=== PATIENT | female | born 1985 | race Caucasian/White ===

== ENCOUNTER 2016-12-31 19:25 | Emergency (ER) | payer OTHER ==
[2016-12-31 19:42] VITALS: RESP 18; TEMP 97.6
[2016-12-31 22:08] VITALS: BP 108/58; PULSE 74; O2SAT 99
== END 2016-12-31 21:24 | disposition home or self-care (01) | DRG 781 ==
LOC: ED 19:25
DX: O26.892 Other specified pregnancy related conditions, second trimester (principal); R10.31 Right lower quadrant pain; Z3A.19 19 weeks gestation of pregnancy; R10.30 Lower abdominal pain, unspecified
CPT/HCPCS: 99284

== ENCOUNTER 2017-05-20 07:12 | Observation (INO) | payer OTHER ==
[2016-12-31 22:08] VITALS: O2SAT 99
[~2017-05-20 07:12] MED LIST: CARBOPROST 250 MCG/ML SOL IM PRN; FENTANYL 100MCG/2ML SOL IV PRN; LACTATED RINGERS 1,000 ML IV PRN; MEPIVACAINE HCL 1% MPF 30 ML SOL INFIL PRN; METHYLERGONOVINE MALEATE 0.2 MG/ML SOL IM PRN; OXYTOCIN 10000 MU/ML SOL IM PRN; SODIUM CHLORIDE 0.9% 50 ML 25 ML IV PRN; SODIUM CHLORIDE 0.9% FLUSH 10 ML SOL IV PRN; TERBUTALINE SULFATE 1 MG/ML SOL SC PRN
[2017-05-20] MEDS ORDERED: LACTATED RINGERS 1,000 ML IV SCH (07:15)
[2017-05-20] MEDS ORDERED: OXYTOCIN 10000 MU/ML 20,000 MU in LACTATED RINGERS 1,000 ML IV SCH (07:15)
[2017-05-20] MEDS ORDERED: AMPICILLIN 1 GM PDS 2 GM in SODIUM CHLORIDE 0.9% 100 ML 100 ML IV SCH (07:15)
[2017-05-20] MEDS: SODIUM CHLORIDE 0.9% FLUSH 10 ML SOL IV SCH ×2 (07:41→14:59)
[2017-05-20] MEDS ORDERED: LACTATED RINGERS 1,000 ML ONE (08:01)
[2017-05-20] MEDS ORDERED: OXYTOCIN 10000 MU/ML SOL ONE (08:01)
[2017-05-20 08:25] VITALS: RESP 20
[2017-05-20 09:16] LABS: BASOPHILS % (AUTO) 1 % (0-3); EOSINOPHILS % (AUTO) 1 % (0-9); HEMATOCRIT 36 % (35-47); MEAN CORPUSCULAR HGB CONC 37.9 gm/dl (32.0-36.0); MEAN CORPUSCULAR VOLUME 91 fL (81-99); MONOCYTES % (AUTO) 6.5 % (0-12)
[2017-05-20 09:31] LABS: ANISOCYTOSIS SLIGHT
[2017-05-20] MEDS ORDERED: AMPICILLIN 1 GM PDS ONE ×2 (09:39→14:13)
[2017-05-20] MEDS: AMPICILLIN 1 GM PDS 1 GM in SODIUM CHLORIDE 0.9% 100 ML 100 ML IV SCH ×2 (14:22→18:55)
[2017-05-20 18:49] VITALS: BP 108/64; PULSE 77; TEMP 97.9
== END 2017-05-20 20:05 | disposition home or self-care (01) | DRG 951 ==
LOC: INTOOBSV 07:12 → OB 07:12 → OBSVTOIN 07:12 → UNDODISIN 20:05
PROVIDERS: ADMIT Family Medicine; ATTEND Family Medicine
DX: Z34.83 Encounter for supervision of other normal pregnancy, third trimester (principal); Z3A.39 39 weeks gestation of pregnancy
CPT/HCPCS: 36415; 59025; 85025; J0290; J0670; J2590; J3105

== ENCOUNTER 2017-05-22 07:08 | Inpatient (IN) | payer OTHER ==
[2017-05-22] MEDS: MISOPROSTOL 100 MCG TAB VAG PRN ×2 (07:50→12:48)
[2017-05-22] MEDS ORDERED: TERBUTALINE SULFATE 1 MG/ML SOL SC PRN (08:22)
[2017-05-22] MEDS ORDERED: AMPICILLIN 1 GM PDS ONE ×4 (09:00→19:35)
[2017-05-22] MEDS: SODIUM CHLORIDE 0.9% FLUSH 10 ML SOL IV SCH ×2 (09:11→16:03)
[2017-05-22] MEDS: AMPICILLIN 1 GM PDS 1 GM in SODIUM CHLORIDE 0.9% 100 ML 100 ML IV SCH ×4 (09:13→20:38)
[2017-05-22] MEDS ORDERED: FENTANYL 100MCG/2ML SOL IV PRN (09:40)
[2017-05-22] MEDS ORDERED: CARBOPROST 250 MCG/ML SOL IM PRN (09:40)
[2017-05-22] MEDS ORDERED: LACTATED RINGERS 1,000 ML IV PRN (09:40)
[2017-05-22] MEDS ORDERED: METHYLERGONOVINE MALEATE 0.2 MG/ML SOL IM PRN (09:40)
[2017-05-22] MEDS ORDERED: MEPIVACAINE HCL 1% MPF 30 ML SOL INFIL PRN (09:40)
[2017-05-22] MEDS: SODIUM CHLORIDE 0.9% FLUSH 10 ML SOL IV PRN (11:40)
[2017-05-23] MEDS ORDERED: AMPICILLIN 1 GM PDS ONE ×6 (01:06→23:21)
[2017-05-23] MEDS: SODIUM CHLORIDE 0.9% FLUSH 10 ML SOL IV SCH ×3 (01:14→16:53)
[2017-05-23] MEDS: AMPICILLIN 1 GM PDS 1 GM in SODIUM CHLORIDE 0.9% 100 ML 100 ML IV SCH ×6 (01:14→23:30)
[2017-05-23] MEDS ORDERED: TERBUTALINE SULFATE 1 MG/ML SOL SC PRN (04:25)
[2017-05-23] MEDS ORDERED: OXYTOCIN 10000 MU/ML 20,000 MU in LACTATED RINGERS 1,000 ML IV SCH (04:30)
[2017-05-23] MEDS ORDERED: LACTATED RINGERS 1,000 ML IV SCH ×2 (04:30→13:30)
[2017-05-23] MEDS: SODIUM CHLORIDE 0.9% FLUSH 10 ML SOL IV PRN ×2 (05:06→21:39)
[2017-05-23] MEDS ORDERED: LACTATED RINGERS 1,000 ML ONE (05:33)
[2017-05-23] MEDS ORDERED: OXYTOCIN 10000 MU/ML SOL ONE (05:33)
[2017-05-23] MEDS ORDERED: NALOXONE HYDROCHLORIDE 0.4 MG/ML SOL IV PRN (13:29)
[2017-05-23] MEDS ORDERED: NALBUPHINE HCL 20 MG/ML SOL IV PRN (13:29)
[2017-05-23] MEDS ORDERED: DIPHENHYDRAMINE 50 MG/ML SOL IV PRN (13:29)
[2017-05-23] MEDS ORDERED: EPHEDRINE SULFATE 50 MG/ML SOL IV PRN (13:29)
[2017-05-23] MEDS: LACTATED RINGERS 1,000 ML IV SCH ×2 (13:46→14:07)
[2017-05-23] MEDS ORDERED: LIDOCAINE HCL 2% MPF SOL ONE ×2 (13:48→20:12)
[2017-05-23] MEDS ORDERED: ROPIVACAINE HYDROCHLORIDE 5 MG/ML SOL ONE (13:52)
[2017-05-23] MEDS ORDERED: FENTANYL 250 MCG/ 5ML SOL ONE (13:54)
[2017-05-23] MEDS: OXYTOCIN 10000 MU/ML SOL IM PRN ×2 (19:38→19:59)
[2017-05-23] MEDS ORDERED: LACTATED RINGERS 1,000 ML with OXYTOCIN 10000 MU/ML 20 MU IV ONE (20:05)
[2017-05-23] MEDS ORDERED: ONDANSETRON HCL 4 MG/2 ML SOL ONE (20:20)
[2017-05-23] MEDS ORDERED: EPHEDRINE SULFATE 50 MG/ML SOL ONE (20:20)
[2017-05-23] MEDS ORDERED: SODIUM CHLORIDE 0.9% 1000ML 1,000 ML IV ONE (20:26)
[2017-05-23] MEDS ORDERED: SODIUM CHLORIDE 0.9% 500 ML 500 ML IV SCH (20:30)
[2017-05-23 20:34] LABS: ABO A; ANTIBODY SCREEN Negative; RH TYPE Positive; UNIT TYPE A POSITIVE
[2017-05-23] MEDS ORDERED: WITCH HAZEL 1 EA PAD TOP PRN (21:05)
[2017-05-23] MEDS ORDERED: BISACODYL 10 MG SUP PR PRN (21:05)
[2017-05-23] MEDS ORDERED: FLEET ENEMA PR PRN (21:05)
[2017-05-23] MEDS ORDERED: IBUPROFEN 600 MG TAB PO PRN (21:05)
[2017-05-23] MEDS ORDERED: TEMAZEPAM 15MG 15 MG CAP PO PRN (21:05)
[2017-05-23] MEDS ORDERED: APAP/HYDROCODONE 325/5 TAB PO PRN (21:05)
[2017-05-23] MEDS ORDERED: BENZOCAINE/MENTHOL 1 SPR TOP PRN (21:05)
[2017-05-23] MEDS: METHYLERGONOVINE MALEATE 0.2 MG TAB PO PRN (21:39)
[2017-05-23] MEDS ORDERED: MISOPROSTOL 100 MCG TAB ONE (22:02)
[2017-05-23 22:32] LABS: APPEARANCE,URINE Slightly Cloudy; BILIRUBIN,URINE NEGATIVE (NEGATIVE); COLOR,URINE Yellow; GLUCOSE, URINE (UA) NEGATIVE (NEGATIVE); KETONES,URINE 3+ (NEGATIVE); LEUKOCYTE ESTERASE ,URINE NEGATIVE (NEGATIVE); NITRATE,URINE NEGATIVE (NEGATIVE); OCCULT BLOOD,URINE 2+ (NEG-TRACE); UROBILINOGEN,URINE 0.2 (0.2-1.0 EU)
[2017-05-23 22:33] LABS: UNIT TYPE A POSITIVE
[2017-05-23 22:44] LABS: RBC,URINE 60-80 (0-3AV/HPF); WBC,URINE 0-4 (0-5AV/HPF)
[2017-05-24] MEDS ORDERED: AMPICILLIN 1 GM PDS ONE ×2 (02:58→06:44)
[2017-05-24] MEDS: AMPICILLIN 1 GM PDS 1 GM in SODIUM CHLORIDE 0.9% 100 ML 100 ML IV SCH ×3 (03:07→06:50)
[2017-05-24] MEDS: METHYLERGONOVINE MALEATE 0.2 MG TAB PO PRN (03:15)
[2017-05-24] MEDS: SODIUM CHLORIDE 0.9% FLUSH 10 ML SOL IV SCH (04:42)
[2017-05-24 07:40] VITALS: O2SAT 95
[2017-05-24] MEDS: SODIUM CHLORIDE 0.9% FLUSH 10 ML SOL IV PRN (08:01)
[2017-05-24] MEDS: DOCUSATE SODIUM 100 MG SGL PO SCH ×2 (08:47→21:48)
[2017-05-25] MEDS ORDERED: FOLIC ACID 1 MG TAB PO SCH (09:00)
[2017-05-25] MEDS ORDERED: MULTIVITAMIN2 1 EA TAB PO SCH (09:00)
[2017-05-25 11:59] VITALS: BP 102/67; PULSE 80; RESP 14; TEMP 97.9
[2017-05-25] MEDS: DOCUSATE SODIUM 100 MG SGL PO SCH (17:58)
== END 2017-05-25 15:40 | disposition home or self-care (01) | DRG 767 ==
LOC: OBSVTOIN 07:08 → OB 07:08
PROVIDERS: ADMIT Family Medicine; ATTEND Family Medicine
PROC: 3E0P7GC Introduction of Other Therapeutic Substance into Female Reproductive, Via Natural or Artificial Opening (ICD-10-PCS; 2017-05-22)
PROC: 10D17ZZ Extraction of Products of Conception, Retained, Via Natural or Artificial Opening (ICD-10-PCS; 2017-05-23)
PROC: 0UJD7ZZ Inspection of Uterus and Cervix, Via Natural or Artificial Opening (ICD-10-PCS; 2017-05-23)
PROC: 30233N1 Transfusion of Nonautologous Red Blood Cells into Peripheral Vein, Percutaneous Approach (ICD-10-PCS; 2017-05-23)
PROC: 10E0XZZ Delivery of Products of Conception, External Approach (ICD-10-PCS; principal; 2017-05-23 20:00)
DX: O99.824 Streptococcus B carrier state complicating childbirth (principal); K92.1 Melena; O43.123 Velamentous insertion of umbilical cord, third trimester; O66.0 Obstructed labor due to shoulder dystocia; Z3A.39 39 weeks gestation of pregnancy; Z37.0 Single live birth; O72.1 Other immediate postpartum hemorrhage
CPT/HCPCS: 36415; 59025; 81001; 85018; 85049; 85610; 86850; 86900; 86901; 86920; 94762; 99070; J0290; J0670; J2001; J2210; J2405; J2590; J2795; J3010; J3105; P9016